=== PATIENT | male | born 1970 | race African-American/Black ===

== ENCOUNTER 2023-04-07 21:31 | Emergency (ER) | payer OTHER ==
[~2023-04-07] VITALS: Ht 185.4 cm; Wt 109.0 kg
[2023-04-07] MEDS ORDERED: ATOR10TA PO (21:55)
[2023-04-07] MEDS ORDERED: LOSA-381 PO (21:55)
[2023-04-07] MEDS ORDERED: LUMA42CA PO (21:55)
[2023-04-07] MEDS ORDERED: IBUP-1493 PO (21:55)
[2023-04-07] MEDS ORDERED: HYDR-4808 PO (21:55)
[2023-04-07 22:12] LABS: APPEARANCE,URINE HAZY (CLEAR); BILIRUBIN,URINE NEGATIVE (NEGATIVE); COLOR,URINE YELLOW (YELLOW); GLUCOSE, URINE (UA) NEGATIVE (NEGATIVE); KETONES,URINE TRACE mg/dL (NEGATIVE); LEUKOCYTE ESTERASE ,URINE LARGE (NEGATIVE); NITRATE,URINE NEGATIVE (NEGATIVE); OCCULT BLOOD,URINE LARGE (NEGATIVE); PH,URINE 6.5 (5.0-8.0); PROTEIN,URINE 100-200,SEE CONFIRM mg/dL (NEGATIVE); SPECIFIC GRAVITIY, URINE 1.037 (1.003-1.030)
[2023-04-07 22:38] LABS: SULFOSALICYLIC ACID,URINE 3+ (Negative)
[2023-04-07 22:39] LABS: RBC,URINE 51-100 /HPF (0-2); WBC,URINE 51-100 /HPF (0-5)
[2023-04-07 22:40] LABS: BACTERIA,URINE Few /HPF (None Seen)
[2023-04-07] MEDS ORDERED: LEVO-72 PO (23:09)
[2023-04-07] MEDS ORDERED: LIDOCAINE/PF 1% 2 ML VIAL IM ONE (23:15)
[2023-04-07] MEDS ORDERED: CefTRIAXone SODIUM 1 GM/VIAL IM ONE (23:15)
[2023-04-07 23:32] VITALS: BP 149/82; PULSE 89; RESP 18; TEMP 97.9
== END 2023-04-07 23:41 | disposition home or self-care (01) ==
LOC: EMS 21:32
DX: N39.0 Urinary tract infection, site not specified (principal); F32.A Depression, unspecified; E78.00 Pure hypercholesterolemia, unspecified; I10 Essential (primary) hypertension; F20.9 Schizophrenia, unspecified; Z87.891 Personal history of nicotine dependence
CPT/HCPCS: 99283; 81001; 87086; 87186; 96372; J0696; J3490; 81002